=== PATIENT | female | born 1985 | race Caucasian/White ===

== ENCOUNTER 2017-10-09 16:38 | Emergency (ER) | payer SELFPAY ==
[~2017-10-09] VITALS: Ht 167.6 cm; Wt 86.1 kg
[2017-10-09 17:39] LABS: HEMATOCRIT 38.7 % (36.0-46.0); HEMOGLOBIN 12.7 G/DL (11.9-15.5); MCH 26.5 PG (29.0-34.0); MCHC 32.8 G/DL (30.0-36.0); MCV 80.6 FL (83-99); PLATELET COUNT 326 K/uL (156-360); RBC DIS.WIDTH-CV 14.1 % (11.8-14.6); RBC DIS.WIDTH-SD 41.6 % (39-53); WHITE BLOOD COUNT 8.2 K/uL (4.1-10.2)
[2017-10-09 17:57] LABS: ALBUMIN 3.7 g/dL (3.2-4.8)
[2017-10-09 17:58] LABS: CHLORIDE 103 mEq/L (99-109); POTASSIUM 4.3 mEq/L (3.7-5.4); SODIUM 134 mEq/L (136-147)
[2017-10-09 18:00] LABS: GLUCOSE 79 mg/dL (70-99); TOTAL PROTEIN 7.2 g/dL (6.4-8.3)
[2017-10-09 18:02] LABS: TOTAL BILIRUBIN 1.1 mg/dL (0.0-1.0)
[2017-10-09 18:03] LABS: ALKALINE PHOSPHATASE 88 IU/L (3-129)
[2017-10-09 18:04] LABS: CREATININE 0.7 mg/dL (0.6-1.3); GFR ESTIMATE (CALCULATED) > 59 mL/min/
[2017-10-09 18:05] LABS: AST (GOT) 45 IU/L (2-34); UREA NITROGEN (BUN) 10 mg/dL (9-23)
[2017-10-09 18:06] LABS: ALT (GPT) 49 IU/L (3-49)
[2017-10-09 18:13] LABS: TROP-I INTERPRETATION NEGATIVE; TROPONIN-I < 0.01 ng/mL (0.0-0.30)
[2017-10-09] MEDS ORDERED: NORCO 10/3251 TABLET PO (18:20)
[2017-10-09] MEDS ORDERED: MOTRIN600 MG PO (18:20)
[2017-10-09] MEDS ORDERED: VENTOLIN HFA18 GM IH (18:41)
[2017-10-09 18:57] VITALS: BP 122/74
== END 2017-10-09 19:00 | disposition home or self-care (01) ==
LOC: EME 16:38
PROVIDERS: Emergency Medicine
DX: R07.89 Other chest pain (principal); F17.200 Nicotine dependence, unspecified, uncomplicated; Z87.2 Personal history of diseases of the skin and subcutaneous tissue
CPT/HCPCS: 71046; 80053; 84484; 85027; 93005; 99281; 99284

== ENCOUNTER 2017-11-17 14:53 | Inpatient (IN) | payer BC ==
[~2017-11-17] VITALS: Ht 177.8 cm; Wt 92.0 kg
[~2017-11-17 14:53] MED LIST: MOTRIN600 MG PO; NORCO 10/3251 TABLET PO; VENTOLIN HFA18 GM IH
[2017-11-17 17:00] LABS: BASOPHIL (%) 1.5 % (0-1); BASOPHIL COUNT 0.1 K/uL (0-0.1); EOSINOPHIL COUNT 0.3 K/uL (0-0.3); HEMATOCRIT 34.2 % (36.0-46.0); HEMOGLOBIN 10.9 G/DL (11.9-15.5); IMMATURE GRANULOCYTE (%) 2.6 % (0.0-0.7); LYMPHOCYTE COUNT 0.9 K/uL (1.0-2.8); MCH 25.3 PG (29.0-34.0); MCHC 31.9 G/DL (30.0-36.0); MCV 79.4 FL (83-99); MONOCYTE (%) 8.3 % (3-12); MONOCYTE COUNT 0.5 K/uL (0-0.8); NEUTROPHIL (%) 65.6 % (45-76); NEUTROPHIL COUNT 3.6 K/uL (1.8-6.4); PLATELET COUNT 327 K/uL (156-360); RBC DIS.WIDTH-CV 15.9 % (11.8-14.6); RBC DIS.WIDTH-SD 45.7 % (39-53); RED BLOOD COUNT 4.31 M/uL (3.80-5.20); WHITE BLOOD COUNT 5.4 K/uL (4.1-10.2)
[2017-11-17 17:16] LABS: CHLORIDE 106 mEq/L (99-109); POTASSIUM 3.8 mEq/L (3.7-5.4); SODIUM 141 mEq/L (136-147)
[2017-11-17 17:17] LABS: GLUCOSE 92 mg/dL (70-99)
[2017-11-17 17:21] LABS: CREATININE 0.7 mg/dL (0.6-1.3); GFR ESTIMATE (CALCULATED) > 59 mL/min/
[2017-11-17 17:22] LABS: UREA NITROGEN (BUN) 7 mg/dL (9-23)
[2017-11-17] MEDS ORDERED: VENTOLIN HFA18 GM IH (18:33)
[2017-11-17 19:36] LABS: APPEARANCE SL.HAZY ((CLEAR)); BILIRUBIN NEGATIVE; BLOOD NEGATIVE; COLOR YELLOW ((YELLOW)); GLUCOSE (STRIP) NEGATIVE; KETONES NEGATIVE; LEUKOCYTES TRACE; NITRITE NEGATIVE; PROTEIN (STRIP) 30; SPECIFIC GRAVITY 1.019 (1.000-1.030)
[2017-11-17 19:42] LABS: BACTERIA NONE SEEN /HPF; EPITHELIAL CELLS 1+ /HPF; MUCUS TRACE /LPF; RED BLOOD CELLS 0-5 /HPF (0-5); WHITE BLOOD CELLS 15-20 /HPF (0-5)
[2017-11-17 19:46] LABS: AMPHETAMINE NEGATIVE (500 ng/mL); BENZODIAZEPINES PRESUMPTIVE POSITIVE (150 ng/mL); COCAINE NEGATIVE (150 ng/mL); METHAMPHETAMINE NEGATIVE (500 ng/mL); OPIATES (MORPHINE) PRESUMPTIVE POSITIVE (100 ng/mL); PHENCYCLIDINE NEGATIVE (25 ng/mL); THC CANNABINOIDS PRESUMPTIVE POSITIVE (50 ng/mL); TRICYCLIC ANTIDEPRESSANTS NEGATIVE (300 ng/mL)
[2017-11-17 19:47] LABS: BARBITURATES NEGATIVE (200 ng/mL); BUPRENORPHINE NEGATIVE (10 ng/mL); METHADONE NEGATIVE (200 ng/mL); OXYCODONE PRESUMPTIVE POSITIVE (100 ng/mL); PROPOXYPHENE NEGATIVE (300 ng/mL)
[2017-11-17 21:30] LABS: BENZODIAZEPINES, URINE SCREEN POSITIVE (200 ng/mL)
[2017-11-17 23:20] VITALS: BP 120/74
[2017-11-18 04:00] VITALS: BP 122/68
[2017-11-18 07:25] VITALS: BP 105/61
[2017-11-18 11:07] VITALS: BP 100/59
[2017-11-18 15:32] VITALS: BP 118/69
[2017-11-18 21:30] VITALS: BP 109/69
[2017-11-19 00:06] VITALS: BP 102/58
[2017-11-19 09:00] VITALS: BP 96/51
[2017-11-19 12:35] LABS: HEPATITIS B SURFACE ANTIGEN Nonreactive
[2017-11-19 16:00] VITALS: BP 133/88
[2017-11-19 19:00] VITALS: BP 134/86
[2017-11-20 00:14] VITALS: BP 133/87
[2017-11-20 05:52] LABS: HEMATOCRIT 32.7 % (36.0-46.0); HEMOGLOBIN 10.3 G/DL (11.9-15.5); MCH 24.8 PG (29.0-34.0); MCHC 31.5 G/DL (30.0-36.0); MCV 78.8 FL (83-99); PLATELET COUNT 337 K/uL (156-360); RBC DIS.WIDTH-CV 16.2 % (11.8-14.6); RBC DIS.WIDTH-SD 46.4 % (39-53); RED BLOOD COUNT 4.15 M/uL (3.80-5.20); WHITE BLOOD COUNT 3.5 K/uL (4.1-10.2)
[2017-11-20 06:26] LABS: CHLORIDE 101 MEQ/L (99-109); CREATININE 0.8 MG/DL (0.6-1.3); GFR ESTIMATE (CALCULATED) > 59 mL/min/; GLUCOSE 85 mg/dL (70-99); POTASSIUM 3.8 MEQ/L (3.7-5.4); SODIUM 137 MEQ/L (136-147); UREA NITROGEN (BUN) 5 mg/dL (9-23)
[2017-11-20 07:36] VITALS: BP 120/84
[2017-11-20 12:15] LABS: C DIFF TOXIN NEGATIVE (NEGATIVE)
[2017-11-20 16:55] VITALS: BP 133/92
[2017-11-20 23:14] VITALS: BP 122/76
[2017-11-21 06:00] LABS: HEMATOCRIT 33.4 % (36.0-46.0); HEMOGLOBIN 10.2 G/DL (11.9-15.5); MCH 24.8 PG (29.0-34.0); MCHC 30.5 G/DL (30.0-36.0); MCV 81.1 FL (83-99); PLATELET COUNT 238 K/uL (156-360); RBC DIS.WIDTH-CV 16.3 % (11.8-14.6); RBC DIS.WIDTH-SD 48.1 % (39-53); RED BLOOD COUNT 4.12 M/uL (3.80-5.20); WHITE BLOOD COUNT 2.8 K/uL (4.1-10.2)
[2017-11-21 06:54] LABS: CHLORIDE 102 MEQ/L (99-109); CREATININE 0.7 MG/DL (0.6-1.3); GFR ESTIMATE (CALCULATED) > 59 mL/min/; GLUCOSE 82 mg/dL (70-99); MAGNESIUM 1.9 mg/dl (1.3-2.7); POTASSIUM 4.2 MEQ/L (3.7-5.4); SODIUM 134 MEQ/L (136-147); UREA NITROGEN (BUN) 8 mg/dL (9-23)
[2017-11-21 06:56] LABS: VANCOMYCIN, TROUGH 8.7 MCG/ML (10-20)
[2017-11-21 07:33] VITALS: BP 102/55
[2017-11-21 23:46] VITALS: BP 107/55
[2017-11-22 07:44] VITALS: BP 97/51
[2017-11-22 16:07] VITALS: BP 110/62
[2017-11-22 16:29] VITALS: BP 108/64
[2017-11-22 23:30] VITALS: BP 100/59
[2017-11-23 06:51] LABS: HEMATOCRIT 34.5 % (36.0-46.0); HEMOGLOBIN 10.6 G/DL (11.9-15.5); MCH 24.9 PG (29.0-34.0); MCHC 30.7 G/DL (30.0-36.0); MCV 81.2 FL (83-99); PLATELET COUNT 298 K/uL (156-360); RBC DIS.WIDTH-CV 16.7 % (11.8-14.6); RBC DIS.WIDTH-SD 49.6 % (39-53); RED BLOOD COUNT 4.25 M/uL (3.80-5.20); WHITE BLOOD COUNT 6.8 K/uL (4.1-10.2)
[2017-11-23 07:09] LABS: CHLORIDE 99 MEQ/L (99-109); CREATININE 0.9 MG/DL (0.6-1.3); GFR ESTIMATE (CALCULATED) > 59 mL/min/; GLUCOSE 90 mg/dL (70-99); MAGNESIUM 2.1 mg/dl (1.3-2.7); POTASSIUM 4.8 MEQ/L (3.7-5.4); SODIUM 135 MEQ/L (136-147); UREA NITROGEN (BUN) 8 mg/dL (9-23)
[2017-11-23 07:11] VITALS: BP 89/54
[2017-11-23 10:51] LABS: HCV RNA (LOG IU/mL) 5.37 (())
[2017-11-23 11:17] VITALS: BP 107/56
[2017-11-23] MEDS ORDERED: MOTRIN600 MG PO (12:36)
[2017-11-23] MEDS ORDERED: FERROUS SULFAT325 MG PO (12:36)
[2017-11-23] MEDS ORDERED: EFFEXOR50 MG PO (12:36)
[2017-11-23] MEDS ORDERED: FLORASTOR250 MG PO (12:36)
[2017-11-23] MEDS ORDERED: BACTRIM,SEPT1 TABLET PO (12:36)
[2017-11-23] MEDS ORDERED: FUROSEMIDE20 MG PO (12:38)
[2017-11-23 15:15] VITALS: BP 107/59
[2017-11-23 21:00] VITALS: BP 114/67
[2017-11-23 23:56] VITALS: BP 100/57
[2017-11-24 07:31] VITALS: BP 98/56
[2017-11-24 16:08] VITALS: BP 96/52
[2017-11-24 20:15] VITALS: BP 96/58
[2017-11-24 23:36] VITALS: BP 105/59
[2017-11-25 07:17] VITALS: BP 101/55
[2017-11-25 08:58] LABS: HEMATOCRIT 42.8 % (36.0-46.0); MCH 24.6 PG (29.0-34.0); MCHC 30.6 G/DL (30.0-36.0); MCV 80.5 FL (83-99); PLATELET COUNT 349 K/uL (156-360); RBC DIS.WIDTH-CV 16.5 % (11.8-14.6); RBC DIS.WIDTH-SD 47.9 % (39-53); WHITE BLOOD COUNT 4.4 K/uL (4.1-10.2)
[2017-11-25 08:59] LABS: HEMOGLOBIN 13.1 G/DL (11.9-15.5); RED BLOOD COUNT 5.32 M/uL (3.80-5.20)
[2017-11-25 15:28] VITALS: BP 122/75
[2017-11-25] MEDS ORDERED: TRAZODONE HCL50 MG PO (17:20)
[2017-11-25] MEDS ORDERED: CATAPRES0.1 MG PO (17:20)
== END 2017-11-25 17:20 | disposition home or self-care (01) | DRG 871 ==
LOC: EME 14:53 → EDOF 20:09 → 4EAST 20:09 → ENRESERV 20:11 → 4EAST 23:15 → ENRESERV 11-19 19:59 → 5SOUTH 11-20
PROVIDERS: Emergency Medicine; Internal Medicine; Internal Medicine Infectious Disease; Physician Assistant Medical
DX: A41.02 Sepsis due to Methicillin resistant Staphylococcus aureus (principal); I26.90 Septic pulmonary embolism without acute cor pulmonale; I76 Septic arterial embolism; I33.0 Acute and subacute infective endocarditis; I82.612 Acute embolism and thrombosis of superficial veins of left upper extremity; J96.01 Acute respiratory failure with hypoxia; I26.09 Other pulmonary embolism with acute cor pulmonale; I07.1 Rheumatic tricuspid insufficiency; F17.210 Nicotine dependence, cigarettes, uncomplicated; F12.10 Cannabis abuse, uncomplicated; I27.20 Pulmonary hypertension, unspecified; D64.9 Anemia, unspecified; L98.9 Disorder of the skin and subcutaneous tissue, unspecified; B19.20 Unspecified viral hepatitis C without hepatic coma; F41.9 Anxiety disorder, unspecified; F11.20 Opioid dependence, uncomplicated; J90 Pleural effusion, not elsewhere classified; B95.61 Methicillin susceptible Staphylococcus aureus infection as the cause of diseases classified elsewhere; G06.1 Intraspinal abscess and granuloma; J45.20 Mild intermittent asthma, uncomplicated; I80.8 Phlebitis and thrombophlebitis of other sites; K04.7 Periapical abscess without sinus; Z98.1 Arthrodesis status; Z82.49 Family history of ischemic heart disease and other diseases of the circulatory system; Z80.49 Family history of malignant neoplasm of other genital organs; Z80.41 Family history of malignant neoplasm of ovary; Z86.61 Personal history of infections of the central nervous system; Z86.711 Personal history of pulmonary embolism
CPT/HCPCS: 71046; 71275; 80048; 80202; 81003; 83735; 84999; 85025; 85027; 85651; 86140; 87040; 87086; 87340; 87493; 87522 90; 93005; 93306; 93971; 99202; 99281; 99285; J1650; J3370; J7040; J7050; Q0177; S0032